=== PATIENT | male | born 1990 | race Caucasian/White ===

== ENCOUNTER 2024-01-07 13:03 | Emergency (ER) | payer BC, SELFPAY ==
[2024-01-07 13:08] VITALS: BP 156/100
[2024-01-07 13:37] LABS: % Basophils 0.5 % (0-2); % Eosinophils 2.7 % (0-6); % Immature Granulocytes 0.2 % (0-0.5); % Lymphocytes 27.8 % (20.5-51.1); % Monocytes 9.2 % (1.7-9.3); % Neutrophils 59.6 % (42.2-75.2); Absolute Eosinophils 0.2 10^3/uL (0-0.7); Absolute Lymphocytes 1.8 10^3/uL (1.2-3.4); Absolute Monocytes 0.6 10^3/uL (0.1-0.6); Absolute Neutrophils 3.9 10^3/uL (1.4-6.5); Hematocrit 44.6 % (39.0-52.0); Hemoglobin 14.7 g/dL (13.0-18.0); Mean Corpuscular Hgb 27.2 pg (27.0-31.0); Mean Corpuscular Volume 82.6 fL (80.0-94.0); Mean Platelet Volume 9.2 fL (7.4-10.4); Nucleated Red Blood Cells % 0 % (-); Platelet Count 243 10^3/uL (130-400); Red Cell Dist. Width 13.2 % (11.5-14.5); White Blood Cell Count 6.6 10^3/uL (4.8-10.8)
[2024-01-07 13:40] LABS: ALT (SGPT) 54 U/L (0-50); AST (SGOT) 33 U/L (17-59); Albumin 4.5 g/dl (3.5-5.0); Alkaline Phosphatase 67 U/L (38-126); Blood Urea Nitrogen 14 mg/dl (9-20); Calcium 9.4 mg/dl (8.4-10.2); Carbon Dioxide 26 mmol/L (22-30); Chloride 103 mmol/L (98-107); Glucose 92 mg/dl (70-99); Lipase 92 U/L (23-300); Potassium 4.5 mmol/L (3.5-5.1); Sodium 136 mmol/L (135-145); Total Bilirubin 0.5 mg/dl (0.2-1.3); Total Protein 7.5 g/dl (6.3-8.2); eGFR > 60.00
--- NOTE | 2024-01-07 15:43 | ED.GENMED ---
History of Present Illness
General
Chief Complaint: Abdominal Symptoms
Source: patient
Exam Limitations: none
Time Seen by Provider: 01/07/24 15:08
Travel History
Have you had any contact with someone who has COVID-19?: No
Do you have any symptoms of coronavirus? Fever > 100 degrees, chills, cough, shortness of breath, sore throat, loss of taste or smell, muscle aches, or headache?: No
History of Present Illness
History of Present Illness:
Patient is a 39-year-old male who presents to the ER for evaluation. Patient started with pain under his left lower rib area 2 days ago. He describes this as a sharp cramp which is worse with a deep breath. Yesterday however he started with
radiation of pain to his left shoulder. He reports initially when he takes deep breath he feels pain in his left lower rib area and then feels it in his shoulder as well. He is not short of breath but again describes pain with deep breath. He
denies any injury. He denies any nausea vomiting. He denies any abdominal pain. he denies any injury. Denies recent fever chills cough URI symptoms. He denies any chest pain. He does mention that there is a significant family history of cardiac
disease in his family .
Review of Systems
Review of Systems
Allergies reviewed?: Yes
All Other Systems: ROS reviewed and negative except as documented in HPI and ROS
Constitutional: Reports no symptoms; Denies fever, fatigue or chills
EENT: Reports no symptoms
Respiratory: Reports other (pt has pain to left rib region/left shoulder worse with deep breath); Denies trouble breathing
Cardiac: Reports no symptoms; Denies chest pain, diaphoresis or palpitations
ABD/GI: Reports no symptoms; Denies abdominal pain, nausea, vomiting, diarrhea or constipated
: Reports no symptoms
Musculoskeletal: Reports no symptoms
Skin: Reports no symptoms
Neurological: Reports no symptoms
Psychiatric: Reports no symptoms
Phy Exam
General Physical Exam
General Presentation: no apparent distress
General age: appears stated age
General Skin: warm and dry
General Habitus: normal
General Mental: alert
General Hydration: appears well hydrated
Eye Exam
Eye Exam: PERRL and EOMI
Cardiovascular Exam
Cardiovascular Exam: regular rate/rhythm, no murmur and normal peripheral pulses
Pulmonary Exam
Pulmonary Exam: lungs clear and no respiratory distress
Gastrointestinal Exam
Gastrointestinal Exam: non tender and soft
Neurological Exam
Neurological Exam: alert and oriented x3
Musculoskeletal Exam
Musculoskeletal Exam: full ROM
Skin Exam
Skin Exam: normal color and warm/dry
Psychiatric Exam
Psychiatric Exam: normal mood/affect
Course
Orders/Labs/Results
Orders:
Orders
01/07/24 13:12
Electrocardiogram (*1) Urgent
Reason for Study: Abdominal Pain
01/07/24 13:13
EKG- Treatment ONCE
01/07/24 13:20
Complete Blood Count/With Diff Urgent
Comprehensive Metabolic Panel Urgent
Lipase Urgent
01/07/24 15:52
Electrocardiogram (*1) Stat
Reason for Study: Other
Other Reason for Exam: chest pain
EKG- Treatment ONCE
01/07/24 16:12
DDimer [D-Dimer] Urgent
01/07/24 16:57
CT Chest Pe Study Urgent
Comment:
Reason For Exam: pleuritic left rib pain
Abnormal Lab Results
01/07/24 01/07/24
13:20 16:12
D-Dimer 1.02 H ug/mlFEU
(0.00-0.50)
ALT 54 H U/L
(0-50)
01/07/24 13:20
01/07/24 13:20
Vital Signs
Initial and Last Documented VS:
Initial Vital Signs
Temp Pulse Resp BP Pulse Ox
98.0 F 99 16 156/100 98
01/07/24 13:08 01/07/24 13:08 01/07/24 13:08 01/07/24 13:08 01/07/24 13:08
Last Documented Vital Signs
Temp Pulse Resp BP Pulse Ox
98.0 F 76 14 128/77 98
01/07/24 13:08 01/07/24 17:11 01/07/24 17:11 01/07/24 17:11 01/07/24 17:11
Inside Sales Consultant consulted with Physician
Inside Sales Consultant consulted with physician?: Yes
Name of Physician Consulted: debbie
MDM/Problems Addressed
Differential Diagnosis Includes:
Not limited to pleuritic chest pain, pleurisy, musculoskeletal pain
MDM/Problems Addressed:
Patient is a 33-year-old male that presents to the ER complaining of pain with deep breaths under left rib area and in left shoulder. He denies any actual shortness of breath. He denies any chest pain/injury. He presents to the ER awake alert no
acute distress. He presents awake alert no acute distress. No complaints abdominal pain abdomen soft nontender. With pleuritic chest pain and pain with deep breath D-dimer was done and elevated. CT negative for PE. Likely pleuritic pain. pt
in no distress Case discussed with Dr. Iqbal will DC with ibuprofen with close outpatient follow-up. Patient will be given family practice clinic as he currently does not have a doctor.
*Radiology
Radiology exam reviewed: radiology read reviewed
*Pulse Oximetry
Patient hypoxic: no
*EKG
Interpreted by ED Provider?: Yes
Interpretation: normal
Heart Rate: 81
Rate: normal
Rhythm: sinus
Ischemia: no ischemia
*Critical Care Note
Total Time (30-74mins, 75-104mins- exclusive of procedures): Not Applicable
ED Attending Note
-
Portions of this chart may have been created with voice recognition software.� Occasional wrong word or��sound alike� substitutions may have occurred due to the inherent limitations of voice recognition software.
Discharge Plan
Departure
Patient Disposition: Home (Routine Discharge)
Date of Disposition: 01/07/24
Time of Disposition: 19:36
Patient with high blood pressure during this ER visit?: Yes
Condition: Fair
Covid-19: Not Applicable
Discharge Problem:
Pleuritic pain
Instructions: Pleuritic Chest Pain (DC), BLOOD PRESSURE
Referrals:
[facility] [Provider Group]
[facility] [Outside]
NONE,* [Family Provider] -
Activity Restrictions/Additional Instructions:
600 mg ibuprofen every 8 hours for discomfort.
Follow-up with family practice clinic in the next of days for reevaluation of your symptoms but return any worsening of symptoms.
Interventions
Interventions:
*Risk Screen - Suicide Last Done: 01/07/24 16:15
*General Assessment Last Done: 01/07/24 16:15
*Neglect/Abuse Screening Last Done: 01/07/24 16:15
*ED COVID-19 Vaccine History Last Done: 01/07/24 13:08
BW-Zdxfsm-Bbdwqlnidw Assessment Last Done: 01/07/24 16:15
Discharge Date and Time
Print Language: WOLOF
[2024-01-07 16:38] LABS: D-Dimer 1.02 ug/mlFEU (0.00-0.50)
[2024-01-07 17:11] VITALS: BP 128/77
== END 2024-01-07 19:47 | disposition home or self-care (01) ==
LOC: EMR 13:03
PROVIDERS: Emergency Medicine; Nurse Practitioner; EMERGENCY PHYSICIAN Student in an Organized Health Care Education/Training Program
DX: R07.81 Pleurodynia (principal); M25.512 Pain in left shoulder; R03.0 Elevated blood-pressure reading, without diagnosis of hypertension; Z82.49 Family history of ischemic heart disease and other diseases of the circulatory system; Z88.6 Allergy status to analgesic agent; Z88.0 Allergy status to penicillin
CPT/HCPCS: 99285; 71275; 80053; 83690; 85025; 85379; 93005; Q9967